=== PATIENT | male | born 1975 | race African-American/Black ===

== ENCOUNTER 2018-12-19 12:20 | Inpatient (IN) ==
[2018-12-19] MEDS ORDERED: DEXTROSE 50% 25 GM/50 ML VIAL IV PRN (23:36)
[2018-12-19] MEDS ORDERED: GLUCAGON 1 MG VIAL IM PRN (23:36)
[2018-12-20] MEDS: INSULIN LISPRO 100 UNIT/ML SUBCUT SCH ×5 (01:15→22:21)
[2018-12-20] MEDS ORDERED: MORPHINE 4 MG/1 ML VIAL IV PRN (01:16)
[2018-12-20] MEDS: NITROGLYCERIN SL 0.4 MG TABLET SL PRN ×2 (01:40→01:45)
[2018-12-20] MEDS ORDERED: GLUCAGON 1 MG VIAL IM PRN (09:01)
[2018-12-20] MEDS ORDERED: DEXTROSE 50% 25 GM/50 ML VIAL IV PRN (09:01)
[2018-12-20 12:11] LABS: Hematocrit 38.5 VOL% (42.0-52.0); Hemoglobin 12.9 GM/DL (14.0-18.0); Red Blood Count 4.32 MC/CUMM (3.8-5.5); White Blood Count 7.1 T/CUMM (4-12)
[2018-12-20 12:12] LABS: Basophils % 0.6 % (0.0-0.8); Eosinophils # 0.2 10*3/uL (0.0-0.87); Eosinophils % 2.3 % (0.00-10.9); Immature Granulocytes % 0.4 %; Immature Granulocytes Absolute 0.03 #; Lymphocytes # 3.1 10*3/uL (1.4-4.0); Lymphocytes % 43.2 % (21.2-54.2); Mean Corpuscular HGB Conc 33.5 GM/DL (32-36); Mean Corpuscular Volume 89.1 FL (87-102); Mean Platelet Volume 9.6 FL (9.6-12.0); Monocytes % 9.2 % (1.7-12.7); Neutrophils % 44.3 % (38.7-73.9); Platelet Count 242 T/CUMM (130-400); Red Cell Distribution Width 12.4 % (9.3-17.3)
[2018-12-20 12:31] LABS: Calcium 8.7 MG/DL (8.5-10.1); Osmolality,Calculated 293.1 MOS/KG (273-304)
[2018-12-20 12:51] LABS: Troponin I 0.087 NG/ML (0.00-0.045)
[2018-12-20] MEDS ORDERED: INSULIN GLARGINE 100 UNIT/ML SUBCUT SCH (21:00)
[2018-12-20] MEDS: PREGABALIN 75 MG CAPSULE PO SCH (21:58)
[2018-12-20] MEDS: ATORVASTATIN 80 MG TABLET PO SCH (21:59)
[2018-12-20] MEDS: carvediloL 12.5 MG TABLET PO SCH (21:59)
[2018-12-20] MEDS: ENOXAPARIN 40 MG/0.4 ML SYRINGE SUBCUT SCH (22:21)
[2018-12-20] MEDS: CHLORHEXIDINE 0.12% ORAL RINSE 60 ML BOTTLE SWISH/SPIT SCH (22:34)
[2018-12-21 04:18] LABS: Basophils # 0.1 10*3/uL (0.0-0.2); Basophils % 0.6 % (0.0-0.8); Eosinophils # 0.2 10*3/uL (0.0-0.87); Eosinophils % 2.3 % (0.00-10.9); Hematocrit 39.8 VOL% (42.0-52.0); Hemoglobin 13.1 GM/DL (14.0-18.0); Immature Granulocytes % 0.3 %; Immature Granulocytes Absolute 0.02 #; Lymphocytes # 3.9 10*3/uL (1.4-4.0); Lymphocytes % 48.8 % (21.2-54.2); Mean Corpuscular HGB Conc 32.9 GM/DL (32-36); Mean Corpuscular Volume 89.6 FL (87-102); Mean Platelet Volume 9.7 FL (9.6-12.0); Monocytes % 8.6 % (1.7-12.7); Neutrophils % 39.4 % (38.7-73.9); Platelet Count 241 T/CUMM (130-400); Red Blood Count 4.44 MC/CUMM (3.8-5.5); Red Cell Distribution Width 12.3 % (9.3-17.3)
[2018-12-21 04:39] LABS: Calcium 9.4 MG/DL (8.5-10.1)
[2018-12-21] MEDS: PREGABALIN 75 MG CAPSULE PO SCH ×3 (09:02→21:23)
[2018-12-21] MEDS: amLODIPine 10 MG TABLET PO SCH (09:02)
[2018-12-21] MEDS: carvediloL 12.5 MG TABLET PO SCH ×2 (09:03→16:19)
[2018-12-21] MEDS: INSULIN LISPRO 100 UNIT/ML SUBCUT SCH ×4 (09:03→21:20)
[2018-12-21] MEDS: VERAPAMIL 120 MG TABLET PO SCH (09:03)
[2018-12-21] MEDS: CHLORHEXIDINE 0.12% ORAL RINSE 60 ML BOTTLE SWISH/SPIT SCH ×2 (09:07→21:22)
[2018-12-21] MEDS: LISINOPRIL/HCTZ 20-12.5 MG TABLET PO SCH (09:16)
[2018-12-21] MEDS: PANTOPRAZOLE 40 MG TABLET PO SCH (09:16)
[2018-12-21] MEDS ORDERED: carvediloL 25 MG TABLET PO SCH (17:00)
[2018-12-21] MEDS ORDERED: ONDANSETRON 4 MG/2 ML VIAL IV PRN (18:34)
[2018-12-21] MEDS: ATORVASTATIN 80 MG TABLET PO SCH (21:21)
[2018-12-21] MEDS: ENOXAPARIN 40 MG/0.4 ML SYRINGE SUBCUT SCH (21:21)
[2018-12-21] MEDS: INSULIN GLARGINE 100 UNIT/ML SUBCUT SCH (22:07)
[2018-12-22] MEDS ORDERED: CEFUROXIME INJ 1,500 MG in SYRINGE 1 EACH IV ONE (09:01)
[2018-12-22] MEDS: INSULIN LISPRO 100 UNIT/ML SUBCUT SCH ×4 (09:26→21:22)
[2018-12-22] MEDS: CHLORHEXIDINE 0.12% ORAL RINSE 60 ML BOTTLE SWISH/SPIT SCH ×2 (09:26→21:23)
[2018-12-22] MEDS: carvediloL 12.5 MG TABLET PO SCH ×2 (09:27→17:22)
[2018-12-22] MEDS: LISINOPRIL/HCTZ 20-12.5 MG TABLET PO SCH (09:27)
[2018-12-22] MEDS: PANTOPRAZOLE 40 MG TABLET PO SCH (09:27)
[2018-12-22] MEDS: VERAPAMIL 120 MG TABLET PO SCH (09:27)
[2018-12-22] MEDS: amLODIPine 10 MG TABLET PO SCH (09:27)
[2018-12-22] MEDS: PREGABALIN 75 MG CAPSULE PO SCH ×3 (09:27→21:21)
[2018-12-22] MEDS ORDERED: ACETAMINOPHEN 325 MG TABLET PO PRN (11:56)
[2018-12-22] MEDS: CHLORHEXIDINE 4% SOLN 118 ML BOTTLE TOP SCH ×2 (14:49→21:22)
[2018-12-22] MEDS: ATORVASTATIN 80 MG TABLET PO SCH (21:21)
[2018-12-22] MEDS: INSULIN GLARGINE 100 UNIT/ML SUBCUT SCH (21:22)
[2018-12-23] MEDS: ENOXAPARIN 40 MG/0.4 ML SYRINGE SUBCUT SCH (00:36)
[2018-12-23] MEDS ORDERED: PAPAVERINE 60 MG/2 ML VIAL ONE ×2 (04:25→05:17)
[2018-12-23] MEDS ORDERED: TISSUE ADHESIVE 1 EACH APPLICATOR TOP ONE (04:25)
[2018-12-23] MEDS ORDERED: VANCOMYCIN 500 MG VIAL ONE (04:26)
[2018-12-23] MEDS ORDERED: VANCOMYCIN 1,000 MG VIAL ONE (04:26)
[2018-12-23 05:28] LABS: Basophils % 0.4 % (0.0-0.8); Eosinophils # 0.2 10*3/uL (0.0-0.87); Eosinophils % 2.1 % (0.00-10.9); Hemoglobin 12.8 GM/DL (14.0-18.0); Immature Granulocytes % 0.3 %; Immature Granulocytes Absolute 0.03 #; Lymphocytes # 3.5 10*3/uL (1.4-4.0); Lymphocytes % 37.6 % (21.2-54.2); Mean Corpuscular HGB Conc 32.8 GM/DL (32-36); Mean Corpuscular Volume 90.1 FL (87-102); Mean Platelet Volume 9.8 FL (9.6-12.0); Monocytes % 11.4 % (1.7-12.7); Neutrophils % 48.2 % (38.7-73.9); Platelet Count 226 T/CUMM (130-400); Red Blood Count 4.33 MC/CUMM (3.8-5.5); Red Cell Distribution Width 12.7 % (9.3-17.3); White Blood Count 9.2 T/CUMM (4-12)
[2018-12-23] MEDS ORDERED: CEFUROXIME INJ 1,500 MG in SYRINGE 1 EACH IV ONE (05:30)
[2018-12-23 05:52] LABS: Calcium 8.9 MG/DL (8.5-10.1); Osmolality,Calculated 291.4 MOS/KG (273-304)
[2018-12-23] MEDS ORDERED: FAMOTIDINE 20 MG TABLET PO ONE (06:00)
[2018-12-23] MEDS ORDERED: DIAZEPAM 5 MG TABLET PO ONE (06:00)
[2018-12-23] MEDS: INSULIN LISPRO 100 UNIT/ML SUBCUT SCH ×2 (07:55→10:52)
[2018-12-23] MEDS: carvediloL 12.5 MG TABLET PO SCH (07:55)
[2018-12-23 07:58] LABS: ABG Base Excess -0.5 MMOL/L (-2.5-2.5); ABG Oxygen Saturation 99.8 % (95-100); ABG PCO2 39.8 MM HG (35-48); ABG PH 7.393 (7.35-7.45); ABG TCO2 21.5 MMOL/L (23-27); Glucose Heart Surgery 228 MG/DL (74-106); Ionized Calcium Arterial 1.12 MMOL/L (1.21-1.46); PCO2 Patient Temp Arterial 39.8 MMHG; PH Patient Temp Arterial 7.393; Patient Temperature 37 CELCIUS; Potassium Heart/CVR 3.9 MMOL/L (3.5-5.1); Sodium Heart/CVR 139 MMOL/L (135-145)
[2018-12-23] MEDS: VERAPAMIL 120 MG TABLET PO SCH (08:10)
[2018-12-23] MEDS: PANTOPRAZOLE 40 MG TABLET PO SCH (08:11)
[2018-12-23] MEDS: CHLORHEXIDINE 0.12% ORAL RINSE 60 ML BOTTLE SWISH/SPIT SCH ×2 (08:11→22:31)
[2018-12-23] MEDS: LISINOPRIL/HCTZ 20-12.5 MG TABLET PO SCH (08:11)
[2018-12-23] MEDS: PREGABALIN 75 MG CAPSULE PO SCH (08:11)
[2018-12-23] MEDS: CHLORHEXIDINE 4% SOLN 118 ML BOTTLE TOP SCH (08:11)
[2018-12-23] MEDS: amLODIPine 10 MG TABLET PO SCH (08:11)
[2018-12-23 09:14] LABS: Hematocrit Heart Surgery 24.5 PERCENT (42-52); Hemoglobin Heart Surgery 7.9 G/DL (14.0-18.0); PCO2 Patient Temp Venous 35.3 MM HG; PH Patient Temp Venous 7.467; Potassium Heart/CVR 4.3 MMOL/L (3.5-5.1); VBG Oxygen Saturation 78.2 %; VBG PCO2 38.9 MMHG (41-51); VBG PH 7.437; VBG PO2 40.2 MMHG (17-40)
[2018-12-23 09:18] LABS: Apearance,Urine CLEAR (Clear); Bilirubin,Urine Negative (Negative); Blood, Urine Negative (Negative); Glucose,Urine (UA) 50 mg/dL (Negative); Ketones,Urine Negative (Negative); Mucus,Urine Occasional /LPF (Occasional); Nitrite,Urine Negative (Negative); Protein,Urine Negative; RBC,Urine <1 /HPF (0-4); Urine Color Yellow (Yellow); Urine Specific Gravity 1.019 (1.001-1.035); Urine Urobilinogen < 2.0 EU/DL (0.2-1.0); WBC,Urine <1 /HPF (0-6)
[2018-12-23] MEDS ORDERED: PHENYLEPHRINE DRIP 20 MG/250 ML PREMIX IV ONE (09:20)
[2018-12-23] MEDS ORDERED: LIDOCAINE 2% 5 ML VIAL ONE ×2 (09:20→10:48)
[2018-12-23] MEDS ORDERED: TRANEXAMIC ACID 1,000 MG/10 ML VIAL ONE (09:21)
[2018-12-23] MEDS ORDERED: SUFentanil 250 MCG/5 ML AMP ONE (09:21)
[2018-12-23] MEDS ORDERED: VECURONIUM 10 MG VIAL IV ONE (09:21)
[2018-12-23] MEDS ORDERED: MIDAZOLAM 10 MG/2 ML VIAL ONE ×2 (09:21)
[2018-12-23] MEDS ORDERED: diphenhydrAMINE 50 MG/1 ML VIAL ONE (09:21)
[2018-12-23] MEDS ORDERED: LACTATED RINGERS 1,000 ML IV ONE (09:22)
[2018-12-23] MEDS ORDERED: SODIUM CHLORIDE 0.9% 100 ML IV ONE (09:22)
[2018-12-23] MEDS ORDERED: FAMOTIDINE 20 MG/2 ML VIAL IV ONE (09:22)
[2018-12-23] MEDS ORDERED: NITROGLYCERIN DRIP 50 MG/250 ML BOTTLE IV ONE (09:22)
[2018-12-23] MEDS ORDERED: SODIUM CHLORIDE 0.9% 2,000 ML IV ONE (09:22)
[2018-12-23] MEDS ORDERED: SODIUM CHLORIDE 0.9% 250 ML IV ONE (09:22)
[2018-12-23] MEDS ORDERED: METOPROLOL TARTRATE 5 MG/5 ML VIAL IV ONE (09:22)
[2018-12-23] MEDS ORDERED: ETOMIDATE 40 MG/20 ML VIAL IV ONE (09:22)
[2018-12-23] MEDS ORDERED: ALBUMIN 5% 12.5 GM/250 ML VIAL IV ONE ×3 (09:23→11:24)
[2018-12-23] MEDS ORDERED: HEPARIN/NACL 0.9% 2 UNITS/ML 500 ML IV ONE (09:23)
[2018-12-23 09:40] LABS: Hematocrit Heart Surgery 26.9 PERCENT (42-52); Hemoglobin Heart Surgery 8.7 G/DL (14.0-18.0); PCO2 Patient Temp Venous 32.7 MM HG; PH Patient Temp Venous 7.488; PO2 Patient Temp Venous 39.6 MM HG; Potassium Heart/CVR 4.4 MMOL/L (3.5-5.1); VBG Base Excess 1.8 MEQ/L (0-4); VBG HCO3 25.9 MEQ/L (24-28); VBG Oxygen Saturation 86.6 %; VBG PCO2 37.7 MMHG (41-51); VBG PH 7.443; VBG PO2 48.6 MMHG (17-40)
[2018-12-23 10:13] LABS: Hematocrit Heart Surgery 27.6 PERCENT (42-52); Hemoglobin Heart Surgery 8.9 G/DL (14.0-18.0); PCO2 Patient Temp Venous 38.3 MM HG; PH Patient Temp Venous 7.428; PO2 Patient Temp Venous 40.4 MM HG; Potassium Heart/CVR 4.7 MMOL/L (3.5-5.1); VBG Oxygen Saturation 77.4 %; VBG PCO2 38.3 MMHG (41-51); VBG PH 7.428; VBG PO2 40.4 MMHG (17-40)
[2018-12-23] MEDS ORDERED: THROMBIN TOPICAL (RECOMBINANT) 5,000 UNIT VIAL TOP ONE (10:22)
[2018-12-23 10:42] LABS: ABG Base Excess -1.6 MMOL/L (-2.5-2.5); ABG HCO3 23.1 MMOL/L (20-26); ABG PCO2 32.8 MM HG (35-48); ABG PH 7.435 (7.35-7.45); ABG TCO2 20.2 MMOL/L (23-27); Glucose Heart Surgery 313 MG/DL (74-106); Hematocrit Heart Surgery 28.3 PERCENT (42-52); Hemoglobin Heart Surgery 9.1 G/DL (14.0-18.0); Ionized Calcium Arterial 1.21 MMOL/L (1.21-1.46); PCO2 Patient Temp Arterial 32.8 MMHG; PH Patient Temp Arterial 7.435; Patient Temperature 37 CELCIUS; Potassium Heart/CVR 4.2 MMOL/L (3.5-5.1); Sodium Heart/CVR 134 MMOL/L (135-145)
[2018-12-23] MEDS ORDERED: methylPREDNISolone SOD SUC 1,000 MG/8 ML VIAL ONE (10:48)
[2018-12-23] MEDS ORDERED: SODIUM BICARBONATE 50 MEQ/50 ML VIAL IV ONE (10:48)
[2018-12-23] MEDS ORDERED: DEXTROSE 5% KCL 20 MEQ 40 MEQ/2,000 ML BAG IV ONE (10:48)
[2018-12-23] MEDS ORDERED: ALBUMIN 25% 25 GM/100 ML VIAL IV ONE (10:48)
[2018-12-23] MEDS ORDERED: FUROSEMIDE 20 MG/2 ML VIAL ONE ×2 (10:48→10:49)
[2018-12-23] MEDS ORDERED: MAGNESIUM SULFATE 5 GM/10 ML VIAL IV ONE (10:48)
[2018-12-23] MEDS ORDERED: HEPARIN 10,000 UNIT/10 ML VIAL ONE (10:48)
[2018-12-23] MEDS ORDERED: MANNITOL 100 GM/500 ML BAG IV ONE (10:48)
[2018-12-23] MEDS ORDERED: PROTAMINE SULFATE 250 MG/25 ML VIAL IV ONE (10:48)
[2018-12-23] MEDS ORDERED: PROTAMINE SULFATE 50 MG/5 ML VIAL IV ONE (10:49)
[2018-12-23] MEDS ORDERED: PHENYLEPHRINE DRIP 40 MG/250 ML PREMIX IV PRN (11:50)
[2018-12-23] MEDS: ALBUMIN 5% 12.5 GM in PREMIX 1 EACH IV PRN ×2 (11:50→16:00)
[2018-12-23] MEDS ORDERED: ONDANSETRON 4 MG/2 ML VIAL IV PRN (11:57)
[2018-12-23] MEDS ORDERED: CALCIUM CHLORIDE 1,000 MG/10 ML SYRINGE IV PRN (11:57)
[2018-12-23] MEDS ORDERED: INSULIN REGULAR 100 UNIT/ML IV PRN (11:57)
[2018-12-23] MEDS ORDERED: ACETAMINOPHEN 650 MG SUPP RECTAL PRN (11:57)
[2018-12-23] MEDS ORDERED: SODIUM CHLORIDE 0.9% 250 ML IV PRN (11:57)
[2018-12-23] MEDS ORDERED: MAGNESIUM SULF RIDER 4 GM in PREMIX 1 EACH IV PRN (11:57)
[2018-12-23] MEDS ORDERED: DEXTROSE 10% 250 ML BAG IV PRN ×2 (11:57)
[2018-12-23] MEDS ORDERED: MIDAZOLAM 2 MG/2 ML VIAL IV PRN (11:57)
[2018-12-23] MEDS ORDERED: CHLORHEXIDINE 4% SOLN 118 ML BOTTLE TOP PRN (11:57)
[2018-12-23] MEDS ORDERED: SEVOFLURANE 1 UNIT/15 MINUTE INH ONE (12:04)
[2018-12-23 12:17] LABS: ABG Base Excess -2.2 MMOL/L (-2.5-2.5); ABG HCO3 22.6 MMOL/L (20-26); ABG Oxygen Saturation 99.4 % (95-100); ABG PCO2 35.8 MM HG (35-48); ABG PH 7.399 (7.35-7.45); ABG TCO2 20.4 MMOL/L (23-27); Basophils % 0.3 % (0.0-0.8); Eosinophils # 0.1 10*3/uL (0.0-0.87); Eosinophils % 0.6 % (0.00-10.9); Glucose Heart Surgery 254 MG/DL (74-106); Hematocrit Heart Surgery 27.6 PERCENT (42-52); Hemoglobin Heart Surgery 8.9 G/DL (14.0-18.0); Immature Granulocytes % 0.9 %; Immature Granulocytes Absolute 0.14 #; Lymphocytes # 2.5 10*3/uL (1.4-4.0); Lymphocytes % 15.5 % (21.2-54.2); Mean Corpuscular HGB Conc 33.3 GM/DL (32-36); Mean Corpuscular Volume 90.5 FL (87-102); Mean Platelet Volume 9.7 FL (9.6-12.0); Monocytes % 8.6 % (1.7-12.7); Neutrophils % 74.1 % (38.7-73.9); Potassium Heart/CVR 3.5 MMOL/L (3.5-5.1); Red Cell Distribution Width 12.9 % (9.3-17.3)
[2018-12-23 12:22] LABS: Hematocrit 25.8 VOL% (42.0-52.0); Hemoglobin 8.6 GM/DL (14.0-18.0); Platelet Count 179 T/CUMM (130-400); Red Blood Count 2.85 MC/CUMM (3.8-5.5); White Blood Count 15.9 T/CUMM (4-12)
[2018-12-23 12:27] LABS: INR 1.1; PT Patient Result 12.4 SECS (9.6-12.2); Partial Thromboplastin Time 28.2 SECS (20.8-36.0)
[2018-12-23] MEDS: SODIUM CHLORIDE 0.9% 1,000 ML IV PRN ×2 (12:30→16:00)
[2018-12-23 12:32] LABS: Osmolality,Calculated 295.3 MOS/KG (273-304)
[2018-12-23] MEDS: POTASSIUM CHLORIDE RIDER 20 MEQ in PREMIX 1 EACH IV PRN ×3 (13:00→20:35)
[2018-12-23] MEDS: SODIUM CHLORIDE 0.45% 1,000 ML IV SCH ×2 (13:05)
[2018-12-23] MEDS: POTASSIUM CHLORIDE RIDER 10 MEQ in PREMIX 1 EACH IV PRN ×3 (13:29→21:28)
[2018-12-23] MEDS: MAGNESIUM SULF RIDER 2 GM in PREMIX 1 EACH IV PRN (13:37)
[2018-12-23] MEDS: INSULIN REGULAR DRIP 100 ML IV SCH ×2 (13:48→19:42)
[2018-12-23] MEDS ORDERED: CALCIUM GLUCONATE 1,000 MG in SODIUM CHLORIDE 0.9% 100 ML IV ONE (14:00)
[2018-12-23 15:31] LABS: ABG Base Excess -2.2 MMOL/L (-2.5-2.5); ABG HCO3 22.6 MMOL/L (20-26); ABG Oxygen Saturation 98.8 % (95-100); ABG PCO2 32.3 MM HG (35-48); ABG PH 7.432 (7.35-7.45); ABG TCO2 19.9 MMOL/L (23-27); Glucose Heart Surgery 270 MG/DL (74-106); Hematocrit Heart Surgery 26.2 PERCENT (42-52); Hemoglobin Heart Surgery 8.4 G/DL (14.0-18.0); Potassium Heart/CVR 3.7 MMOL/L (3.5-5.1)
[2018-12-23] MEDS ORDERED: NITROPRUSSIDE 100 MG in DEXTROSE 5% 246 ML IV PRN (19:24)
[2018-12-23] MEDS ORDERED: NITROPRUSSIDE 50 MG/2 ML VIAL ONE (19:27)
[2018-12-23 19:34] LABS: ABG Base Excess -2.1 MMOL/L (-2.5-2.5); ABG HCO3 22.6 MMOL/L (20-26); ABG Oxygen Saturation 97.3 % (95-100); ABG PCO2 35.2 MM HG (35-48); ABG PH 7.405 (7.35-7.45); ABG PO2 88.3 MM HG (80-95); ABG TCO2 20.2 MMOL/L (23-27); Glucose Heart Surgery 174 MG/DL (74-106); Hematocrit Heart Surgery 29.7 PERCENT (42-52); Hemoglobin Heart Surgery 9.6 G/DL (14.0-18.0); Potassium Heart/CVR 3.7 MMOL/L (3.5-5.1)
[2018-12-23] MEDS: CEFUROXIME INJ 1,500 MG in SYRINGE 1 EACH IV SCH (19:53)
[2018-12-23] MEDS ORDERED: LACTATED RINGERS 500 ML IV ONE (19:56)
[2018-12-23] MEDS: MORPHINE 4 MG/1 ML VIAL IV PRN ×2 (20:39→21:09)
[2018-12-23] MEDS: MORPHINE 10 MG/1 ML VIAL IV PRN (23:15)
[2018-12-24] MEDS: MORPHINE 10 MG/1 ML VIAL IV PRN (01:34)
[2018-12-24] MEDS: SODIUM CHLORIDE 0.45% 1,000 ML IV SCH ×3 (03:11→10:09)
[2018-12-24 03:54] LABS: ABG Base Excess -3.3 MMOL/L (-2.5-2.5); ABG HCO3 21.6 MMOL/L (20-26); ABG Oxygen Saturation 92.4 % (95-100); ABG PCO2 39.3 MM HG (35-48); ABG PH 7.355 (7.35-7.45); ABG PO2 65.7 MM HG (80-95); ABG TCO2 20.3 MMOL/L (23-27); Glucose Heart Surgery 124 MG/DL (74-106); Hematocrit Heart Surgery 28.4 PERCENT (42-52); Hemoglobin Heart Surgery 9.1 G/DL (14.0-18.0)
[2018-12-24 04:02] LABS: Basophils % 0.2 % (0.0-0.8); Hematocrit 26.7 VOL% (42.0-52.0); Immature Granulocytes % 0.7 %; Immature Granulocytes Absolute 0.11 #; Lymphocytes # 1.1 10*3/uL (1.4-4.0); Lymphocytes % 6.8 % (21.2-54.2); Mean Corpuscular HGB Conc 33.7 GM/DL (32-36); Mean Corpuscular Volume 89.3 FL (87-102); Mean Platelet Volume 10.1 FL (9.6-12.0); Monocytes % 8.5 % (1.7-12.7); Neutrophils % 83.8 % (38.7-73.9); Platelet Count 184 T/CUMM (130-400); Red Blood Count 2.99 MC/CUMM (3.8-5.5); Red Cell Distribution Width 14.2 % (9.3-17.3); White Blood Count 16.4 T/CUMM (4-12)
[2018-12-24 04:17] LABS: Calcium 7.8 MG/DL (8.5-10.1)
[2018-12-24] MEDS: MAGNESIUM SULF RIDER 2 GM in PREMIX 1 EACH IV PRN (04:26)
[2018-12-24 06:45] LABS: ABG Base Excess -1.9 MMOL/L (-2.5-2.5); ABG HCO3 22.7 MMOL/L (20-26); ABG Oxygen Saturation 93.5 % (95-100); ABG PCO2 40.4 MM HG (35-48); ABG PH 7.367 (7.35-7.45); ABG PO2 68.9 MM HG (80-95); ABG TCO2 21.3 MMOL/L (23-27); Glucose Heart Surgery 135 MG/DL (74-106); Hematocrit Heart Surgery 29.7 PERCENT (42-52); Hemoglobin Heart Surgery 9.6 G/DL (14.0-18.0); Potassium Heart/CVR 4.2 MMOL/L (3.5-5.1)
[2018-12-24] MEDS: CEFUROXIME INJ 1,500 MG in SYRINGE 1 EACH IV SCH ×2 (07:40→20:55)
[2018-12-24] MEDS: MORPHINE 4 MG/1 ML VIAL IV PRN ×4 (07:52→22:06)
[2018-12-24] MEDS: CHLORHEXIDINE 0.12% ORAL RINSE 60 ML BOTTLE SWISH/SPIT SCH ×2 (09:03→20:56)
[2018-12-24] MEDS: FUROSEMIDE 40 MG TABLET PO SCH (09:03)
[2018-12-24] MEDS: ASPIRIN EC 325 MG TABLET PO SCH (09:04)
[2018-12-24] MEDS: carvediloL 3.125 MG TABLET PO SCH ×2 (09:04→16:57)
[2018-12-24] MEDS: PANTOPRAZOLE 40 MG VIAL IV SCH (09:04)
[2018-12-24] MEDS ORDERED: GLUCAGON 1 MG VIAL IM PRN ×2 (09:08→10:08)
[2018-12-24] MEDS ORDERED: DEXTROSE 10% 250 ML BAG IV PRN (09:08)
[2018-12-24] MEDS ORDERED: INSULIN REGULAR 100 UNIT/ML SUBCUT SCH (10:00)
[2018-12-24] MEDS ORDERED: DEXTROSE 50% 25 GM/50 ML VIAL IV PRN (10:08)
[2018-12-24] MEDS ORDERED: SODIUM CHLORIDE 0.9% 1,000 ML IV PRN (10:25)
[2018-12-24] MEDS ORDERED: FUROSEMIDE 40 MG/4 ML VIAL IV ONE (10:45)
[2018-12-24] MEDS: INSULIN REGULAR 100 UNIT/ML SUBCUT SCH ×3 (12:26→20:55)
[2018-12-24] MEDS: METOPROLOL TARTRATE 5 MG/5 ML VIAL IV PRN (13:09)
[2018-12-24] MEDS ORDERED: hydrALAZINE 20 MG/1 ML VIAL IV ONE (14:40)
[2018-12-24] MEDS: ATORVASTATIN 40 MG TABLET PO SCH (20:56)
[2018-12-24] MEDS: hydrALAZINE 25 MG TABLET PO SCH (20:56)
[2018-12-24] MEDS ORDERED: KETOROLAC 15 MG/1 ML VIAL IV ONE (22:32)
[2018-12-24] MEDS: hydrALAZINE 20 MG/1 ML VIAL IV PRN (22:32)
[2018-12-25] MEDS: INSULIN REGULAR 100 UNIT/ML SUBCUT SCH ×7 (00:30→20:40)
[2018-12-25] MEDS: MORPHINE 10 MG/1 ML VIAL IV PRN ×2 (02:35→11:03)
[2018-12-25 04:08] LABS: Basophils % 0.2 % (0.0-0.8); Hematocrit 30.1 VOL% (42.0-52.0); Hemoglobin 9.9 GM/DL (14.0-18.0); Immature Granulocytes % 0.7 %; Immature Granulocytes Absolute 0.13 #; Lymphocytes # 1.6 10*3/uL (1.4-4.0); Lymphocytes % 8.2 % (21.2-54.2); Mean Corpuscular HGB Conc 32.9 GM/DL (32-36); Mean Corpuscular Volume 91.8 FL (87-102); Monocytes % 16.1 % (1.7-12.7); Neutrophils % 74.8 % (38.7-73.9); Platelet Count 188 T/CUMM (130-400); Red Blood Count 3.28 MC/CUMM (3.8-5.5); Red Cell Distribution Width 14.2 % (9.3-17.3); White Blood Count 19.8 T/CUMM (4-12)
[2018-12-25 04:21] LABS: Calcium 7.9 MG/DL (8.5-10.1); Osmolality,Calculated 295.7 MOS/KG (273-304)
[2018-12-25] MEDS: MORPHINE 4 MG/1 ML VIAL IV PRN ×2 (04:30→09:40)
[2018-12-25 04:57] LABS: Anisocytosis 1+; Hypochromasia 1+; Microcytosis 1+; Platelet Estimate Adequate
[2018-12-25] MEDS: hydrALAZINE 25 MG TABLET PO SCH ×3 (08:03→20:41)
[2018-12-25] MEDS: FUROSEMIDE 40 MG TABLET PO SCH (08:03)
[2018-12-25] MEDS: ASPIRIN EC 325 MG TABLET PO SCH (08:03)
[2018-12-25] MEDS: carvediloL 3.125 MG TABLET PO SCH (08:03)
[2018-12-25] MEDS: PANTOPRAZOLE 40 MG VIAL IV SCH (08:04)
[2018-12-25] MEDS: CHLORHEXIDINE 0.12% ORAL RINSE 60 ML BOTTLE SWISH/SPIT SCH ×2 (08:20→21:40)
[2018-12-25] MEDS ORDERED: sitaGLIPtin 100 MG TABLET PO SCH (09:00)
[2018-12-25] MEDS ORDERED: INSULIN GLARGINE 100 UNIT/ML SUBCUT SCH (09:00)
[2018-12-25] MEDS ORDERED: INSULIN GLARGINE 50 UNIT SUBCUT SCH (09:00)
[2018-12-25] MEDS ORDERED: LEVALBUTEROL 1.25 MG/3 ML NEB RESP TX PRN (10:05)
[2018-12-25] MEDS: hydrALAZINE 20 MG/1 ML VIAL IV PRN (10:11)
[2018-12-25] MEDS ORDERED: HYDROmorphone 2 MG/1 ML VIAL IV ONE (10:30)
[2018-12-25] MEDS ORDERED: METOPROLOL TARTRATE 5 MG/5 ML VIAL IV ONE (10:31)
[2018-12-25] MEDS: METOPROLOL TARTRATE 5 MG/5 ML VIAL IV PRN ×5 (10:33→18:26)
[2018-12-25] MEDS ORDERED: HYDROmorphone 2 MG/1 ML VIAL ONE (10:35)
[2018-12-25] MEDS: HYDROmorphone 2 MG/1 ML VIAL IV PRN ×4 (10:35→17:48)
[2018-12-25 11:23] LABS: Troponin I 1.89 NG/ML (0.00-0.045)
[2018-12-25] MEDS ORDERED: POLYETHYLENE GLYCOL POWDER 17 GM PACK PO PRN (14:40)
[2018-12-25] MEDS ORDERED: AMIODARONE 150 MG/3 ML VIAL ONE (15:15)
[2018-12-25] MEDS ORDERED: AMIODARONE 450 MG/9 ML VIAL IV ONE (15:17)
[2018-12-25] MEDS ORDERED: AMIODARONE INJ 450 MG in DEXTROSE 5% 241 ML IV SCH (15:30)
[2018-12-25] MEDS: DOCUSATE SODIUM 100 MG CAPSULE PO SCH ×2 (15:45→20:41)
[2018-12-25] MEDS: carvediloL 6.25 MG TABLET PO SCH (16:12)
[2018-12-25] MEDS ORDERED: METOPROLOL TARTRATE 5 MG/5 ML VIAL IV SCH (18:00)
[2018-12-25] MEDS ORDERED: CLORAZEPATE 3.75 MG TABLET PO PRN (18:42)
[2018-12-25] MEDS: INSULIN GLARGINE 100 UNIT/ML SUBCUT SCH (20:40)
[2018-12-25] MEDS: ATORVASTATIN 40 MG TABLET PO SCH (21:43)
[2018-12-26] MEDS: MORPHINE 4 MG/1 ML VIAL IV PRN ×2 (00:10→08:59)
[2018-12-26] MEDS: INSULIN REGULAR 100 UNIT/ML SUBCUT SCH ×6 (00:20→21:05)
[2018-12-26] MEDS: AMIODARONE INJ 450 MG in DEXTROSE 5% 241 ML IV SCH ×2 (00:21→15:30)
[2018-12-26] MEDS: HYDROmorphone 2 MG/1 ML VIAL IV PRN ×2 (01:06→10:20)
[2018-12-26 03:59] LABS: Basophils # 0.1 10*3/uL (0.0-0.2); Basophils % 0.3 % (0.0-0.8); Hemoglobin 8.9 GM/DL (14.0-18.0); Immature Granulocytes % 0.8 %; Immature Granulocytes Absolute 0.18 #; Lymphocytes # 2.1 10*3/uL (1.4-4.0); Lymphocytes % 9.5 % (21.2-54.2); Mean Corpuscular Volume 91.2 FL (87-102); Monocytes % 17.8 % (1.7-12.7); Neutrophils % 71.6 % (38.7-73.9); Platelet Count 176 T/CUMM (130-400); Red Blood Count 2.96 MC/CUMM (3.8-5.5); Red Cell Distribution Width 13.8 % (9.3-17.3); White Blood Count 22.1 T/CUMM (4-12)
[2018-12-26 04:28] LABS: Lymphocytes 10 % (20-55); Segmented Neutrophils 71 % (50-85); Total Cells Counted 100
[2018-12-26 04:29] LABS: Hypochromasia 1+; Microcytosis 1+; Platelet Estimate Adequate
[2018-12-26 04:30] LABS: Osmolality,Calculated 293.3 MOS/KG (273-304)
[2018-12-26] MEDS: ASPIRIN EC 325 MG TABLET PO SCH (08:40)
[2018-12-26] MEDS: carvediloL 6.25 MG TABLET PO SCH ×2 (08:40→16:22)
[2018-12-26] MEDS: FUROSEMIDE 40 MG TABLET PO SCH (08:41)
[2018-12-26] MEDS: hydrALAZINE 25 MG TABLET PO SCH ×3 (08:41→21:06)
[2018-12-26] MEDS: DOCUSATE SODIUM 100 MG CAPSULE PO SCH ×2 (08:42→21:06)
[2018-12-26] MEDS: INSULIN GLARGINE 100 UNIT/ML SUBCUT SCH ×2 (08:44→21:05)
[2018-12-26] MEDS: PANTOPRAZOLE 40 MG VIAL IV SCH (08:47)
[2018-12-26] MEDS: CHLORHEXIDINE 0.12% ORAL RINSE 60 ML BOTTLE SWISH/SPIT SCH ×2 (08:48→20:02)
[2018-12-26] MEDS ORDERED: ERGOCALCIFEROL 50,000 UNIT CAPSULE PO SCH (10:46)
[2018-12-26] MEDS ORDERED: DOXYCYCLINE HYCLATE 100 MG CAPSULE PO SCH (12:00)
[2018-12-26] MEDS ORDERED: LEVOFLOXACIN INJ 750 MG in PREMIX 1 EACH IV SCH (12:00)
[2018-12-26] MEDS: MINOXIDIL 2.5 MG TABLET PO SCH (12:33)
[2018-12-26] MEDS: MORPHINE 10 MG/1 ML VIAL IV PRN ×3 (15:27→23:10)
[2018-12-26] MEDS: CEFEPIME 2,000 MG in SODIUM CHLORIDE 0.9% 100 ML IV SCH ×2 (15:27→23:12)
[2018-12-26] MEDS: ATORVASTATIN 40 MG TABLET PO SCH (21:06)
[2018-12-27] MEDS: INSULIN REGULAR 100 UNIT/ML SUBCUT SCH ×7 (01:07→23:50)
[2018-12-27] MEDS: MORPHINE 10 MG/1 ML VIAL IV PRN ×3 (01:07→05:28)
[2018-12-27 04:45] LABS: Basophils % 0.2 % (0.0-0.8); Eosinophils % 0.1 % (0.00-10.9); Hematocrit 26.6 VOL% (42.0-52.0); Hemoglobin 8.5 GM/DL (14.0-18.0); Immature Granulocytes Absolute 0.23 #; Lymphocytes # 2.3 10*3/uL (1.4-4.0); Mean Corpuscular Volume 93.3 FL (87-102); Mean Platelet Volume 10.7 FL (9.6-12.0); Monocytes % 12.8 % (1.7-12.7); NRBC # 0.02 10*3/uL; Neutrophils % 75.9 % (38.7-73.9); Platelet Count 209 T/CUMM (130-400); Red Blood Count 2.85 MC/CUMM (3.8-5.5); Red Cell Distribution Width 13.4 % (9.3-17.3); White Blood Count 22.5 T/CUMM (4-12)
[2018-12-27 04:49] LABS: Calcium 8.1 MG/DL (8.5-10.1); Osmolality,Calculated 287.2 MOS/KG (273-304)
[2018-12-27 05:09] LABS: Hypochromasia 1+; Platelet Estimate Adequate
[2018-12-27 05:10] LABS: Microcytosis 1+
[2018-12-27] MEDS: CEFEPIME 2,000 MG in SODIUM CHLORIDE 0.9% 100 ML IV SCH (07:38)
[2018-12-27] MEDS: AMIODARONE INJ 450 MG in DEXTROSE 5% 241 ML IV SCH (07:47)
[2018-12-27] MEDS: carvediloL 6.25 MG TABLET PO SCH (09:16)
[2018-12-27] MEDS: CHLORHEXIDINE 0.12% ORAL RINSE 60 ML BOTTLE SWISH/SPIT SCH ×2 (09:22→20:44)
[2018-12-27] MEDS: PANTOPRAZOLE 40 MG VIAL IV SCH (09:22)
[2018-12-27] MEDS: INSULIN GLARGINE 100 UNIT/ML SUBCUT SCH ×2 (09:22→20:43)
[2018-12-27] MEDS ORDERED: FUROSEMIDE 40 MG/4 ML VIAL IV ONE ×2 (09:22→09:31)
[2018-12-27] MEDS: ASPIRIN EC 325 MG TABLET PO SCH (09:23)
[2018-12-27] MEDS: DOCUSATE SODIUM 100 MG CAPSULE PO SCH ×2 (09:23→20:43)
[2018-12-27] MEDS: AMIODARONE 200 MG TABLET PO SCH ×2 (09:23→20:43)
[2018-12-27] MEDS: carvediloL 12.5 MG TABLET PO SCH ×2 (09:23→20:43)
[2018-12-27] MEDS: FUROSEMIDE 40 MG TABLET PO SCH (09:24)
[2018-12-27] MEDS: MINOXIDIL 2.5 MG TABLET PO SCH (09:24)
[2018-12-27] MEDS: hydrALAZINE 25 MG TABLET PO SCH ×3 (09:24→20:43)
[2018-12-27] MEDS ORDERED: BISACODYL 10 MG SUPP RECTAL ONE (09:38)
[2018-12-27] MEDS ORDERED: MAGNESIUM HYDROXIDE SUSP 30 ML UDCUP PO ONE (09:38)
[2018-12-27] MEDS: POLYETHYLENE GLYCOL POWDER 17 GM PACK PO SCH (10:47)
[2018-12-27] MEDS: ATORVASTATIN 40 MG TABLET PO SCH (20:43)
[2018-12-27] MEDS: METOPROLOL TARTRATE 5 MG/5 ML VIAL IV PRN (22:07)
[2018-12-27 23:04] LABS: Apearance,Urine CLEAR (Clear); Bilirubin,Urine Negative (Negative); Blood, Urine Negative (Negative); Glucose,Urine (UA) >=500 mg/dL (Negative); Hyaline Casts,Urine 3 /LPF (0-3); Ketones,Urine Negative (Negative); Mucus,Urine Occasional /LPF (Occasional); Nitrite,Urine Negative (Negative); Protein,Urine Negative; RBC,Urine 1 /HPF (0-4); Squamous Epithelial Cell,Urine Occasional /HPF (0-10); Urine Color Yellow (Yellow); Urine Specific Gravity 1.013 (1.001-1.035); Urine Urobilinogen < 2.0 EU/DL (0.2-1.0); WBC,Urine 1 /HPF (0-6)
[2018-12-28] MEDS: INSULIN REGULAR 100 UNIT/ML SUBCUT SCH ×5 (04:05→22:10)
[2018-12-28 04:43] LABS: Basophils % 0.2 % (0.0-0.8); Eosinophils # 0.1 10*3/uL (0.0-0.87); Eosinophils % 0.7 % (0.00-10.9); Hemoglobin 7.5 GM/DL (14.0-18.0); Immature Granulocytes % 1.2 %; Immature Granulocytes Absolute 0.23 #; Lymphocytes % 15.6 % (21.2-54.2); Mean Corpuscular HGB Conc 32.6 GM/DL (32-36); Mean Corpuscular Volume 91.3 FL (87-102); Mean Platelet Volume 10.3 FL (9.6-12.0); Monocytes % 12.3 % (1.7-12.7); Platelet Count 239 T/CUMM (130-400); Red Blood Count 2.52 MC/CUMM (3.8-5.5); Red Cell Distribution Width 13.8 % (9.3-17.3)
[2018-12-28 04:56] LABS: Calcium 8.1 MG/DL (8.5-10.1)
[2018-12-28] MEDS: INSULIN GLARGINE 100 UNIT/ML SUBCUT SCH ×2 (08:36→22:11)
[2018-12-28] MEDS: MINOXIDIL 2.5 MG TABLET PO SCH (08:37)
[2018-12-28] MEDS: DOCUSATE SODIUM 100 MG CAPSULE PO SCH ×2 (08:37→22:09)
[2018-12-28] MEDS: FUROSEMIDE 40 MG TABLET PO SCH (08:37)
[2018-12-28] MEDS: AMIODARONE 200 MG TABLET PO SCH ×2 (08:37→22:10)
[2018-12-28] MEDS: ASPIRIN EC 325 MG TABLET PO SCH (08:37)
[2018-12-28] MEDS: POLYETHYLENE GLYCOL POWDER 17 GM PACK PO SCH (08:37)
[2018-12-28] MEDS: PANTOPRAZOLE 40 MG VIAL IV SCH (08:37)
[2018-12-28] MEDS: hydrALAZINE 25 MG TABLET PO SCH ×4 (08:37→22:10)
[2018-12-28] MEDS: carvediloL 12.5 MG TABLET PO SCH ×2 (08:37→22:10)
[2018-12-28] MEDS: CHLORHEXIDINE 0.12% ORAL RINSE 60 ML BOTTLE SWISH/SPIT SCH ×2 (08:51→22:11)
[2018-12-28] MEDS ORDERED: BISACODYL 10 MG SUPP RECTAL PRN (09:38)
[2018-12-28] MEDS ORDERED: FUROSEMIDE 40 MG/4 ML VIAL IV PRN (10:32)
[2018-12-28] MEDS ORDERED: SODIUM CHLORIDE 0.9% 1,000 ML IV PRN ×3 (10:32→13:25)
[2018-12-28] MEDS: sitaGLIPtin 100 MG TABLET PO SCH (12:00)
[2018-12-28] MEDS: ATORVASTATIN 40 MG TABLET PO SCH (22:10)
[2018-12-29] MEDS: INSULIN REGULAR 100 UNIT/ML SUBCUT SCH ×4 (00:49→13:15)
[2018-12-29 08:02] VITALS: BP 165/79
[2018-12-29] MEDS ORDERED: NF- (Liraglutide [Victoza 3-Pak] 1.8 MG) SUBCUT SCH (09:00)
[2018-12-29] MEDS: AMIODARONE 200 MG TABLET PO SCH (09:53)
[2018-12-29] MEDS: POLYETHYLENE GLYCOL POWDER 17 GM PACK PO SCH (09:53)
[2018-12-29] MEDS: carvediloL 12.5 MG TABLET PO SCH (09:53)
[2018-12-29] MEDS: DOCUSATE SODIUM 100 MG CAPSULE PO SCH (09:53)
[2018-12-29] MEDS: MINOXIDIL 2.5 MG TABLET PO SCH (09:53)
[2018-12-29] MEDS: FUROSEMIDE 40 MG TABLET PO SCH (09:53)
[2018-12-29] MEDS: INSULIN GLARGINE 100 UNIT/ML SUBCUT SCH (09:53)
[2018-12-29] MEDS: CHLORHEXIDINE 0.12% ORAL RINSE 60 ML BOTTLE SWISH/SPIT SCH (09:53)
[2018-12-29] MEDS: ASPIRIN EC 325 MG TABLET PO SCH (09:53)
[2018-12-29] MEDS: hydrALAZINE 25 MG TABLET PO SCH (09:53)
[2018-12-29] MEDS: sitaGLIPtin 100 MG TABLET PO SCH (09:53)
[2018-12-29] MEDS: PANTOPRAZOLE 40 MG VIAL IV SCH (09:54)
== END 2018-12-29 13:40 | disposition home health service (06) | DRG 235 ==
LOC: N.TELEN 18:08 → SUATTDRO 18:08 → N.CVR 12-23 11:17 → N.ICU 12-24 10:57 → N.TELES 12-26 10:34
PROVIDERS: ADMIT Thoracic Surgery (Cardiothoracic Vascular Surgery); ATTEND Hospitalist